=== PATIENT | female | born 1930 | race African-American/Black ===

== ENCOUNTER 2017-07-23 17:29 | Emergency (ER) | payer MEDICARE, OTHER ==
[~2017-07-23] VITALS: Ht 162.6 cm; Wt 51.0 kg
[2017-07-23] MEDS ORDERED: BACITRACIN ZINC OINT UDPKT TOP ONE (18:45)
[2017-07-23] MEDS ORDERED: LIDOCAINE HCL/PF 1% 10 MG/ML 30ML VIAL INFIL ONE (18:45)
[2017-07-23] MEDS ORDERED: ACETAMINOPHEN 325MG TABLET PO ONE (19:00)
[2017-07-23] MEDS ORDERED: LIDOCAINE HCL/PF 1% 10 MG/ML 5ML VIAL IJ NR (19:00)
[2017-07-23] MEDS ORDERED: IBUPROFEN 600MG TABLET PO ONE (19:45)
[2017-07-23] MEDS ORDERED: LIDOCAINE HCL/EPINEPHRINE 1%-EPI 1:100,000 30 ML VIAL INFIL ONE (20:45)
[2017-07-23] MEDS ORDERED: TRANEXAMIC ACID 1,000 MG/10 ML IV ONE (22:00)
[2017-07-23 22:25] VITALS: BP 175/70
== END 2017-07-23 23:24 | disposition home or self-care (01) ==
LOC: ER 17:29
DX: S01.81XA Laceration without foreign body of other part of head, initial encounter (principal); I10 Essential (primary) hypertension; Z90.710 Acquired absence of both cervix and uterus; Z88.0 Allergy status to penicillin; W01.0XXA Fall on same level from slipping, tripping and stumbling without subsequent striking against object, initial encounter; Y93.89 Activity, other specified; Y92.89 Other specified places as the place of occurrence of the external cause; Y99.8 Other external cause status
CPT/HCPCS: 12013; 70450; 96374; 99284; J3490

== ENCOUNTER 2017-07-26 14:20 | Emergency (ER) | payer MEDICARE ==
[~2017-07-26] VITALS: Ht 167.6 cm; Wt 54.0 kg
[2017-07-26 14:34] VITALS: BP 173/66
== END 2017-07-26 17:39 | disposition left against medical advice (07) ==
LOC: ER 15:48
DX: Z48.00 Encounter for change or removal of nonsurgical wound dressing (principal)
CPT/HCPCS: 73060; 99284

== ENCOUNTER 2017-08-02 15:41 | Emergency (ER) | payer MEDICARE, OTHER ==
[~2017-08-02] VITALS: Ht 172.7 cm; Wt 59.0 kg
[2017-08-02 16:43] VITALS: BP 198/85
== END 2017-08-02 22:15 | disposition home or self-care (01) ==
LOC: ER 22:14
DX: Z48.02 Encounter for removal of sutures (principal)
CPT/HCPCS: 99282